=== PATIENT | male | born 1980 | race Caucasian/White ===

== ENCOUNTER 2018-12-15 15:45 | Emergency (ER) | payer OTHER, MEDICAID ==
[~2018-12-15] VITALS: Ht 170.2 cm; Wt 131.5 kg
[2018-12-15] MEDS ORDERED: LISINOPRIL40 MG PO (15:58)
[2018-12-15] MEDS ORDERED: TRICOR145 MG PO (15:59)
[2018-12-15] MEDS ORDERED: ROSUVASTATIN CA20 MG PO (15:59)
[2018-12-15] MEDS ORDERED: LEVOXYL88 MCG PO (15:59)
[2018-12-15] MEDS ORDERED: ASPIR 8181 MG PO (16:00)
[2018-12-15] MEDS ORDERED: HUMALIN R (16:00)
[2018-12-15] MEDS ORDERED: COREG25 MG PO (16:00)
[2018-12-15] MEDS ORDERED: NORVASC10 MG PO (16:00)
[2018-12-15] MEDS ORDERED: SERTRALINE HCL50 MG PO (16:01)
[2018-12-15] MEDS ORDERED: FLEXERIL PO ×2 (16:01→18:06)
[2018-12-15] MEDS ORDERED: XANAX 0.5 MG0.5 MG PO (16:01)
[2018-12-15 16:29] LABS: URINE BILIRUBIN NEGATIVE (Negative); URINE BLOOD 1+ (Negative); URINE CLARITY CLEAR; URINE COLOR YELLOW; URINE GLUCOSE-RANDOM TRACE (Negative); URINE KETONES NEGATIVE (Negative); URINE LEUKOCYTES-REFLEX NEGATIVE (Negative); URINE NITRITE-REFLEX NEGATIVE (Negative); URINE PROTEIN 3+ (Negative); URINE SPECIFIC GRAVITY 1.025 (1.005-1.030); URINE UROBILINOGEN 0.2 E.U./dl (0.2-1.0)
[2018-12-15 16:38] LABS: HYALINE CASTS 0-3 Few /LPF (None Seen); MUCUS None Seen strn/LPF (None Seen); SQUAMOUS NONE SEEN /LPF (0-3)
[2018-12-15 16:39] LABS: BACTERIA-REFLEX None Seen /HPF (None Seen); CRYSTALS None Seen /LPF (None Seen); URINE RBC 0-2 Rare /HPF (0-2); URINE WBC-REFLEX 0-5 Rare /HPF (0-5)
[2018-12-15 16:50] LABS: ABSOLUTE EOSINOPHILS 0.1 thou/uL (0.0-0.7); ABSOLUTE LYMPHOCYTES 1.5 thou/uL (0.8-5.3); ABSOLUTE MONOCYTES 0.3 thou/uL (0.0-1.2); ABSOLUTE NEUTROPHILS 3.7 thou/uL (1.6-8.1); BASOPHILS 0.7 %; EOSINOPHILS 1.5 %; HEMATOCRIT 46.8 % (42.0-52.0); HEMOGLOBIN 15.6 gm/dL (14.0-18.0); LYMPHOCYTES 25.8 %; MCHC 33.3 g/dL (28.0-37.0); MCV 80.9 fL (80.0-100.0); MONOCYTES 5.9 %; MPV 8.3 fl. (7.2-11.1); NUCLEATED RBCS 0 /100WBC; PLATELET COUNT* 257 thou/uL (150-400); POLYS 66.1 %; RBC 5.78 mil/uL (4.50-6.00); RDW-CV 13.1 % (10.5-14.5); WBC 5.7 thou/uL (4.0-11.0)
[2018-12-15 16:59] LABS: ANION GAP 2 mmol/L (7-16); BUN 10 mg/dL (7-18); CALCIUM 8.5 mg/dL (8.5-10.1); CHLORIDE 104 mmol/L (98-107); CO2 33 mmol/L (21-32); CREATININE 1.1 mg/dL (0.6-1.3); GLUCOSE 152 mg/dL (70-99); POTASSIUM 3.8 mmol/L (3.5-5.1); SODIUM 139 mmol/L (136-145)
[2018-12-15 17:11] LABS: ALBUMIN 3.1 g/dL (3.4-5.0); ALKALINE PHOSPHATASE 46 U/L (46-116); LIPASE 207 U/L (73-393); SGOT 17 U/L (15-37); SGPT 25 U/L (30-65); TOTAL BILIRUBIN 0.3 mg/dL (<0.1-1.0); TOTAL PROTEIN 7.1 g/dL (6.4-8.2); TROPONIN-I LEVEL <0.06 ng/mL (<0.06)
[2018-12-15 18:30] VITALS: BP 136/72
--- NOTE | 2018-12-16 10:26 | EKG ---
[place] [address] ELECTROCARDIOGRAM REPORT Name: WILLIAM AUHJA Room: 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 : 1980 Requested By: Christina Hernandez Order Number: [id number] MD: Keshawn Barrios Measurements Intervals [place] Rate: 82 P: 26 AL: 182 QRS: -18 QRSD: 105 T: 57 QT: 370 QTc: 432 Interpretive Statements Sinus rhythm Borderline left axis deviation Low voltage, extremity leads Abnormal R-wave progression, late transition Baseline wander in lead(s) V2,V3 No previous ECG available for comparison Electronically Signed On 12-16-2018 10:26:46 RECEPTION CLERK by Keshawn Barrios [email or web address] <ELECTRONICALLY SIGNED> By: Keshawn Barrios MD, [facility] 12/16/18 1026 1713 171 Keshawn Barrios MD, [facility] /EPI
== END 2018-12-15 18:31 | disposition home or self-care (01) ==
LOC: M.ERS 15:45
PROVIDERS: Nurse Practitioner Family
DX: K76.0 Fatty (change of) liver, not elsewhere classified (principal); I10 Essential (primary) hypertension; E78.5 Hyperlipidemia, unspecified; E03.9 Hypothyroidism, unspecified; F32.9 Major depressive disorder, single episode, unspecified; E10.9 Type 1 diabetes mellitus without complications

== ENCOUNTER 2019-02-06 03:26 | Emergency (ER) | payer OTHER, MEDICAID ==
[~2019-02-06] VITALS: Ht 170.2 cm; Wt 136.1 kg
[~2019-02-06 03:26] MED LIST: ASPIR 8181 MG PO; COREG25 MG PO; FLEXERIL PO; HUMALIN R; LEVOXYL88 MCG PO; LISINOPRIL40 MG PO; NORVASC10 MG PO; ROSUVASTATIN CA20 MG PO; SERTRALINE HCL50 MG PO; TRICOR145 MG PO; XANAX 0.5 MG0.5 MG PO
[2019-02-06] MEDS ORDERED: HYDROCHLOROTHIA25 M1 PO (03:37)
[2019-02-06 03:59] LABS: ABSOLUTE BASOPHILS 0.1 thou/uL (0.0-0.2); ABSOLUTE EOSINOPHILS 0.2 thou/uL (0.0-0.7); ABSOLUTE LYMPHOCYTES 2.2 thou/uL (0.8-5.3); ABSOLUTE MONOCYTES 0.7 thou/uL (0.0-1.2); ABSOLUTE NEUTROPHILS 4.9 thou/uL (1.6-8.1); BASOPHILS 1.2 %; EOSINOPHILS 2.3 %; HEMATOCRIT 47.1 % (42.0-52.0); HEMOGLOBIN 15.7 gm/dL (14.0-18.0); LYMPHOCYTES 26.9 %; MCH 26.4 pg (26.0-34.0); MCHC 33.3 g/dL (28.0-37.0); MCV 79.2 fL (80.0-100.0); MONOCYTES 8.4 %; MPV 8.1 fl. (7.2-11.1); NUCLEATED RBCS 0 /100WBC; PLATELET COUNT* 304 thou/uL (150-400); POLYS 61.2 %; RBC 5.95 mil/uL (4.50-6.00); RDW-CV 13.4 % (10.5-14.5)
[2019-02-06 04:17] LABS: ALBUMIN 3.1 g/dL (3.4-5.0); ALKALINE PHOSPHATASE 50 U/L (46-116); ANION GAP 6 mmol/L (7-16); BUN 21 mg/dL (7-18); CALCIUM 8.9 mg/dL (8.5-10.1); CHLORIDE 104 mmol/L (98-107); CO2 31 mmol/L (21-32); CREATININE 1.2 mg/dL (0.6-1.3); GLUCOSE 99 mg/dL (70-99); SGOT 39 U/L (15-37); SGPT 28 U/L (30-65); SODIUM 141 mmol/L (136-145); TOTAL BILIRUBIN 0.3 mg/dL (<0.1-1.0); TOTAL PROTEIN 7.6 g/dL (6.4-8.2); TROPONIN-I LEVEL <0.06 ng/mL (<0.06)
[2019-02-06 04:18] LABS: POTASSIUM 4.7 mmol/L (3.5-5.1)
[2019-02-06 05:21] VITALS: BP 146/91
--- NOTE | 2019-02-06 17:43 | EKG ---
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: Francisco SHARMA : 1980 Requested By: Adrian Moscsoo Order Number: [id number] MD: Сергей Lainez Measurements Intervals [place] Rate: 94 P: 20 OR: 175 QRS: -7 QRSD: 102 T: 67 QT: 337 QTc: 422 Interpretive Statements Sinus rhythm Low voltage, extremity leads Abnormal R-wave progression, late transition ST elev, probable normal early repol pattern Compared to ECG 12/15/2018 17:13:29 ST (T wave) deviation now present Electronically Signed On 02-06-2019 17:43:11 CDT by Сергей Lainez [email or web address] <ELECTRONICALLY SIGNED> By: Сергей Lainez MD, FACC 02/06/19 1743 0348 0348 Сергей Lainez MD, FAC /EPI
== END 2019-02-06 05:21 | disposition home or self-care (01) ==
LOC: M.ERS 03:26
PROVIDERS: Emergency Medicine Emergency Medical Services
DX: I10 Essential (primary) hypertension (principal); E78.5 Hyperlipidemia, unspecified; E03.9 Hypothyroidism, unspecified; F32.9 Major depressive disorder, single episode, unspecified; E10.9 Type 1 diabetes mellitus without complications

== ENCOUNTER 2019-08-13 00:45 | Emergency (ER) | payer OTHER, MEDICAID ==
[~2019-08-13] VITALS: Ht 170.2 cm; Wt 131.5 kg
[~2019-08-13 00:45] MED LIST changes: +HYDROCHLOROTHIA25 M1 PO
[2019-08-13 01:33] LABS: ABSOLUTE EOSINOPHILS 0.1 thou/uL (0.0-0.7); ABSOLUTE LYMPHOCYTES 1.9 thou/uL (0.8-5.3); ABSOLUTE MONOCYTES 0.6 thou/uL (0.0-1.2); BASOPHILS 0.7 %; EOSINOPHILS 1.3 %; HEMATOCRIT 45.2 % (42.0-52.0); HEMOGLOBIN 15.2 gm/dL (14.0-18.0); LYMPHOCYTES 28.5 %; MCHC 33.6 g/dL (28.0-37.0); MCV 80.3 fL (80.0-100.0); MONOCYTES 9.2 %; MPV 8.5 fl. (7.2-11.1); NUCLEATED RBCS 0 /100WBC; PLATELET COUNT* 270 thou/uL (150-400); POLYS 60.3 %; RBC 5.63 mil/uL (4.50-6.00); RDW-CV 13.4 % (10.5-14.5); WBC 6.7 thou/uL (4.0-11.0)
[2019-08-13 02:04] LABS: ANION GAP 10 mmol/L (7-16); BUN 19 mg/dL (7-18); CALCIUM 8.8 mg/dL (8.5-10.1); CHLORIDE 103 mmol/L (98-107); CO2 28 mmol/L (21-32); CREATININE 1.2 mg/dL (0.6-1.3); GLUCOSE 207 mg/dL (70-99); POTASSIUM 3.8 mmol/L (3.5-5.1); SODIUM 141 mmol/L (136-145)
[2019-08-13 02:12] LABS: INR 1.2; PROTIME 12.1 Seconds (9.20-11.50)
[2019-08-13 02:15] LABS: ALBUMIN 3.4 g/dL (3.4-5.0); ALKALINE PHOSPHATASE 47 U/L (46-116); LIPASE 207 U/L (73-393); NT-PRO BRAIN NAT PEPTIDE 79 pg/mL (<300); SGOT 16 U/L (15-37); SGPT 30 U/L (30-65); TOTAL BILIRUBIN 0.2 mg/dL (<0.1-1.0); TOTAL PROTEIN 7.3 g/dL (6.4-8.2); TROPONIN-I LEVEL <0.06 ng/mL (<0.06)
[2019-08-13 02:44] VITALS: BP 139/76
--- NOTE | 2019-08-13 12:24 | EKG ---
[place] [address] ELECTROCARDIOGRAM REPORT Name: WILLIAM [facility]HUJA [id number] Admission: 08/13/19 Attend Phys: Discharge: 08/13/19 Date of : 76 Report #: [id number] THIS REPORT FOR: //name// [facility] ED Test Date: 2019-08-13 Test Time: 00:53:58 Pat Name: WILLIAM AHUJA Department: Room: Gender: M Gill Box Fixer: RADAMES : 1980 Requested By: Ning Acuña Order Number: [id number] MD: Vikas Warren Measurements Intervals [place] Rate: 87 P: 23 ID: 173 QRS: 56 QRSD: 103 T: 52 QT: 357 QTc: 430 Interpretive Statements Sinus rhythm Borderline low voltage, extremity leads Minimal ST elevation, inferior leads Compared to ECG 02/06/2019 03:48:34 No significant changes Electronically Signed On 08-13-2019 12:24:40 CDT by Vikas Warren [email or web address] <ELECTRONICALLY SIGNED> By: Vikas Warren MD, [facility] 08/13/19 1224 005 005 Vikas Warren MD, FACC /EPI
== END 2019-08-13 02:44 | disposition home or self-care (01) ==
LOC: M.ERS 00:45
PROVIDERS: Emergency Medicine
DX: R07.89 Other chest pain (principal); I10 Essential (primary) hypertension; E78.5 Hyperlipidemia, unspecified; E03.9 Hypothyroidism, unspecified; F32.9 Major depressive disorder, single episode, unspecified; E10.9 Type 1 diabetes mellitus without complications; F41.9 Anxiety disorder, unspecified

== ENCOUNTER 2020-12-28 20:59 | Emergency (ER) | payer OTHER, MEDICAID ==
[~2020-12-28] VITALS: Ht 170.2 cm; Wt 136.1 kg
[2020-12-28] MEDS ORDERED: NORVASC 2.5 MG2.5 M1 PO (21:08)
[2020-12-28 21:36] LABS: ABSOLUTE EOSINOPHILS 0.1 thou/uL (0.0-0.7); ABSOLUTE LYMPHOCYTES 1.6 thou/uL (0.8-5.3); ABSOLUTE MONOCYTES 0.5 thou/uL (0.0-1.2); ABSOLUTE NEUTROPHILS 3.9 thou/uL (1.6-8.1); BASOPHILS 0.8 %; EOSINOPHILS 1.7 %; HEMATOCRIT 49.6 % (42.0-52.0); HEMOGLOBIN 16.7 gm/dL (14.0-18.0); LYMPHOCYTES 26.3 %; MCH 27.2 pg (26.0-34.0); MCHC 33.6 g/dL (28.0-37.0); MCV 81.1 fL (80.0-100.0); MONOCYTES 7.7 %; MPV 7.9 fl. (7.2-11.1); NUCLEATED RBCS 0 /100WBC; PLATELET COUNT* 258 thou/uL (150-400); POLYS 63.5 %; RBC 6.12 mil/uL (4.50-6.00); RDW-CV 13.4 % (10.5-14.5); WBC 6.1 thou/uL (4.0-11.0)
[2020-12-28 21:43] LABS: CALCIUM 8.8 mg/dL (8.5-10.1); CREATININE 1.1 mg/dL (0.6-1.3); POTASSIUM 3.9 mmol/L (3.5-5.1)
[2020-12-28 21:47] LABS: ALBUMIN 3.2 g/dL (3.4-5.0); TOTAL BILIRUBIN 0.2 mg/dL (<0.1-1.0); TOTAL PROTEIN 7.5 g/dL (6.4-8.2)
[2020-12-28 22:20] VITALS: BP 170/98
--- NOTE | 2020-12-29 12:43 | EKG ---
[place] [address] ELECTROCARDIOGRAM REPORT Name: WILLIAM AHUJA Room: [facility]#: [id number] Admission: 12/28/20 Attend Phys: Discharge: 12/28/20 Date of : 76 Date of Service: 12/28/202104 Report #: [id number] THIS REPORT FOR: //name// [facility] ED Test Date: 2020-12-28 Test Time: 21:05:50 Pat Name: WILLIAM AHUJA Department: Room: Gender: Respiratory Assistant: [place] : 1980 Requested By: Elba More Order Number: [id number] MD: Uriel Akers Measurements Intervals [place] Rate: 90 P: 34 DE: 173 QRS: 55 QRSD: 97 T: 54 QT: 359 QTc: 440 Interpretive Statements Sinus rhythm Probable left atrial enlargement Borderline low voltage, extremity leads Compared to ECG 08/13/2019 00:53:58 ST (T wave) deviation no longer present Electronically Signed On 12-29-2020 12:43:10 TEMPORARY HELP AGENCY REFERRAL CLERK by Uriel Akers [email or web address] <ELECTRONICALLY SIGNED> By: Jamila Akers MD, [facility] 12/29/20 1243 04 04 Jamila Akers MD, [facility] /EPI
== END 2020-12-28 22:20 | disposition home or self-care (01) ==
LOC: M.ERS 20:59
PROVIDERS: Personal Emergency Response Attendant
DX: F41.9 Anxiety disorder, unspecified (principal); R07.89 Other chest pain; I10 Essential (primary) hypertension; E78.5 Hyperlipidemia, unspecified; E03.9 Hypothyroidism, unspecified; E10.9 Type 1 diabetes mellitus without complications